=== PATIENT | female | born 1990 | race Caucasian/White ===

== ENCOUNTER 2023-03-27 09:24 | Outpatient (REF) | payer SELFPAY ==
--- NOTE | ~2023-03-27 | MR_ITS ---
EXAMINATION: MR BRAIN WITHOUT CONTRAST CLINICAL INFORMATION: Encephalopathy. Traumatic brain injury. COMPARISON: None available. TECHNIQUE: MRI of the brain was obtained using routine sequences without contrast. FINDINGS: No focal restricted diffusion is demonstrated to suggest acute or subacute cerebral ischemia. No evidence of acute or chronic hemorrhagic products on heme-sensitive imaging. Few nonspecific scattered periventricular and deep white matter T2 FLAIR hyperintensities. No additional parenchymal signal abnormalities. The ventricles are normal in morphology and size. No abnormal mass effect. No midline shift. Normal appearance of the pituitary gland. Normal positioning of the cerebellar tonsils. Normal arterial and venous vascular flow voids are present. Normal, homogeneous marrow signal. There appears to be curvilinear soft tissue scarring along the right aspect of the frontal bone. Nonspecific enlargement of the adenoid tonsils. Mild mucosal thickening of the paranasal sinuses. No signal abnormalities within the mastoids. MR/MR head/brain wo con IMPRESSION: 1. No acute intracranial abnormalities. 2. Minimal nonspecific white matter changes. 3. Nonspecific enlargement of the adenoid tonsils.
== END 2023-03-27 09:25 | disposition home or self-care (01) ==
LOC: HO.MRI 09:24
PROVIDERS: Visit Provider Psychiatry & Neurology Neurology
DX: S06.9X9D Unspecified intracranial injury with loss of consciousness of unspecified duration, subsequent encounter (principal); G93.40 Encephalopathy, unspecified
CPT/HCPCS: 70551